=== PATIENT | female | born 1960 | race Caucasian/White ===

== ENCOUNTER 2019-08-01 07:55 | Outpatient (CLI) | payer BC, SELFPAY ==
--- NOTE | ~2019-08-01 | DEXA_ITS ---
Bone Density Report Name: Rosaura Joyce Age: 59 Sex: Female Ethnicity: White Date of : 1960 Indication: postmenopausal; Referring Provider: Taylor, Desiree Study: Bone densitometry was performed. Exam Date: August 01, 2019 Accession number: [id number] Bone Density: Region BMD T-score Z-score Classification AP Spine (L1-L4) 1.334 2.6 3.9 Normal Femoral Neck (Left) 0.844 0.0 1.2 Normal Total Hip (Left) 1.044 0.8 1.7 Normal Total Hip Bilateral Avg 1.117 1.4 2.3 Normal Femoral Neck (Right) 0.989 1.3 2.5 Normal Total Hip (Right) 1.188 2.0 2.9 Normal World Health Organization criteria for BMD impression classify patients as: Normal (T-score at or above -1.0), Osteopenia (T-score between -1.0 and -2.5), or Osteoporosis (T-score at or below -2.5). 10-year Fracture Risk: FRAX not reported because: All T-scores for Spine Total, Hip Total, Femoral Neck at or above -1.0 Clinical Information Provided by Patient: Has used the following medications: Vitamin D Patient maximum height was 70 Menopause Age: 54 Drinks caffeinated beverages Onset of menses at age 16 Number of children 3 Impression: The patient has normal bone mass. Discussion: BONE DENSITY IS ABOVE THE MINIMUM DESIRABLE LEVEL AT ALL SKELETAL SITES TESTED. This patient?s bone mineral density is above the minimum desirable level (T-score -1.0 or better) at all sites measured. The patient should follow a healthful lifestyle (good nutrition with adequate calcium and vitamin D, and appropriate weight-bearing exercise). Follow-Up: Consider repeating this study in 5 years or sooner if there is some new clinical indication. Reported by: HEATHER on 08/01/2019 8:17:00 AM. Reviewed, dictated and finalized at location [facility]
== END 2019-08-01 07:56 | disposition home or self-care (01) ==
PROVIDERS: PCP Internal Medicine; Visit Provider Nurse Practitioner
DX: Z78.0 Asymptomatic menopausal state (principal)
CPT/HCPCS: 77080

== ENCOUNTER 2020-03-11 16:41 | Outpatient (CLI) | payer BC, SELFPAY ==
--- NOTE | ~2020-03-11 | CT_ITS ---
EXAMINATION: CT chest wo con DATE: 03/11/2020 17:05 INDICATION: R91.1 - Solitary pulmonary nodule TECHNIQUE: Computed tomography (CT) of the chest was performed without intravenous contrast. Addition al 3D reconstructions utilizing coronal maximum intensity projection (MIP) were performed. Automated exposure control and iterative reconstruction technique were employed. The dose-length product was 15 9.36 mGy-cm. COMPARISON: Chest CT dated 05/06/[address] dated 09/28/2017 FINDINGS: Likely benign 8 mm right lower lobe nodule which is unchanged since 09/28/2017, most consistent with ol d granulomatous disease. Additional unchanged 2 mm right lower lobe nodule. No new or enlarging pulmo nary nodules. No pneumonia, pulmonary edema, pleural effusion or pneumothorax. Heart size is normal. No pericardial effusion. Thoracic aorta is normal in caliber. No pathologically enlarged thoracic lym phadenopathy. Cholecystectomy clips the gallbladder fossa. Mild to moderate thoracic spondylosis with minimal to mild anterior wedging of multiple mid to lower thoracic vertebral bodies along with multi ple Schmorl's nodes. IMPRESSION: 1. Greater than 2 years of stability of an 8 mm right lower lobe nodule consistent with old granuloma tous disease and requiring no further follow-up. Reviewed, dictated and finalized at location [facility] IMPRESSION: 1. Greater than 2 years of stability of an 8 mm right lower lobe nodule consist ent with old granulomatous disease and requiring no further follow-up.
== END 2020-03-11 16:42 | disposition home or self-care (01) ==
PROVIDERS: PCP Internal Medicine; Visit Provider Clinical Nurse Specialist
DX: R91.1 Solitary pulmonary nodule (principal)
CPT/HCPCS: 71250

== ENCOUNTER → 2020-04-03 01:05 | Outpatient (CLI) | payer BC, SELFPAY ==
[2020-04-03 20:39] LABS: SARS-CoV-2 RNA PCR Negative
== END ==
PROVIDERS: PCP Internal Medicine; Visit Provider Internal Medicine Gastroenterology
DX: Z01.812 Encounter for preprocedural laboratory examination (principal); Z20.822 Contact with and (suspected) exposure to COVID-19
CPT/HCPCS: C9803; U0003; U0005

== ENCOUNTER 2020-04-07 00:35 | Day surgery (SDC) | payer BC, SELFPAY ==
[2020-03-24 13:40] VITALS: BMI 27.1
[2020-04-07 08:02] VITALS: BP 123/78; PULSE 97; RESP 16; TEMP 36.6; O2SAT 97; BMI 27.2
[2020-04-07] MEDS: LACTATED RINGERS 1,000 ML 150 ML IV CONT (08:18)
[2020-04-07 08:23] LABS: Glucose Point of Care 153 (65-105)
--- NOTE | 2020-04-07 09:07 | WPDANESEPPF ---
Anes - Initial Pre Proc Eval Procedure: Operation Date: 04/07/20 09:00 Proposed Procedures p Screening Colonoscopy - Joseph Connolly MD Date/Time: 04/07/20 09:07 Surgeon: Joseph Connolly MD Pre Op Diagnosis: Neoplasm Screening Patient Data Age: 60 Gender: F Height: 5 ft 10 in Weight: 86.2 kg Last Vital Signs Temp 36.6 C 04/07/20 08:02 Pulse 97 04/07/20 08:02 Resp 16 04/07/20 08:02 BP 123/78 04/07/20 08:02 Pulse Ox 97 04/07/20 08:02 Allergies Allergy/AdvReac Type Severity Reaction Status Date / Time No Known Allergies Allergy Verified 04/07/20 08:00 Home Medications Medication Instructions Recorded Confirmed Type aspirin 81 mg tablet,delayed 81 mg PO DAILY 01/17/19 03/24/20 History release blood sugar diagnostic #10 each 01/17/19 03/05/20 History cholecalciferol (vitamin D3) 1,250 50,000 unit PO WEEKLY 01/17/19 03/24/20 History mcg (50,000 unit) capsule escitalopram oxalate 10 mg tablet 10 mg PO DAILY 01/17/19 03/24/20 History mecobalamin (vitamin B12) 1,000 1,000 mcg PO DAILY 08/21/19 03/24/20 History mcg chewable tablet glipizide 10 mg tablet 10 mg PO DAILY #90 tablet 01/15/20 03/24/20 Rx simvastatin 40 mg tablet 40 mg PO DAILY #90 tablet 01/15/20 03/24/20 Rx sitagliptin 100 mg tablet 100 mg PO DAILY #90 tablet 01/15/20 03/24/20 Rx lisinopril 10 1 tablet PO DAILY #90 tablet 03/09/20 03/24/20 Rx mg-hydrochlorothiazide 12.5 mg tablet metformin 1,000 mg tablet 1,000 mg PO BID #180 tablet 03/09/20 03/24/20 Rx pioglitazone 30 mg tablet 30 mg PO DAILY #90 tablet 03/09/20 03/24/20 Rx sodium,potassium,mag sulfates See Rx Instructions .ROUTE 03/16/20 Rx [Suprep Bowel Prep Kit] .COMPLEX #1 ml Laboratory Tests 04/07/20 08:16 POC Capillary Glucose 153 mg/dl H mg/dl (65-105) Patient hx anesthesia problems: none Family hx anesthesia problems: none PMFSH Past Medical History Medical History Cholecystectomy planned 2017 Cholecystitis 09/28/2017 Cholecystostomy drain infection 09/28/2017 Hyperlipidemia Hypertension Lung nodule Lung nodule < 6cm on CT Type 2 diabetes mellitus Surgical History Surgical History H/O dilation and curettage H/O tympanostomy [id number] History of ear surgery October 2018 Family History Family History Father Diabetes mellitus Family history of cardiovascular disease Hypertension Mother Diabetes mellitus Hypertension Sibling Colon cancer Other Carcinoma of colon Social History Social History Smoking status: Never smoker Alcohol intake: never Substance use: never Substance use type: does not use Living arrangements: with family Spiritual care concerns: No Anes - Eval Final PreProcedure Day of Procedure 04/07/20 09:07 Patient weight: overweight Heart: regular rate and rhythm Lungs: clear to auscultation Airway: Mallampati scale class II Neurological: alert and oriented Last oral intake: >/= 8 hours ASA classification: III Emergent: no Anesthetic plan: proceed Anesthesia type and monitoring: general GIVS and standard monitoring Informed Consent: The patient's anesthetic plan and its attendant risks and benefits were discussed with the patient/family/POA. Questions were solicited and answers provided to the satisfaction of the patient/family/POA.
--- NOTE | 2020-04-07 09:37 | PM.HPGS ---
History of Present Illness History of Present Illness Consent: Risks, benefits, and alternatives have been discussed and questions answered. Patient agrees to proceed with procedure. Chief complaint: Neoplasm Screening Narrative: Rosaura Joyce is a 60 year old female with polyps 2016, due to have another colonoscopy Review of Systems Constitutional: Constitutional: Denies headache(s) and Denies weakness Eyes: Eyes: Denies blurry vision ENT: Reports Normal hearing present, Denies headache(s) and Denies neck pain Cardiovascular: Cardiovascular: Denies chest pain and Denies dyspnea Respiratory: Respiratory: Denies dyspnea Gastrointestinal: Gastrointestinal: Reports no additional gastrointestinal complaints Genitourinary: Genitourinary: Denies dysuria Musculoskeletal: Musculoskeletal: Denies neck pain Integumentary/Breasts: Skin/Breast: Denies dry skin Neurologic: Reports Normal hearing present, Denies headache(s) and Denies weakness Psychiatric: Psychiatric: Denies anxiety Endocrine: Endocrine: Denies change in body appearance Hematologic/Lymphatic: Hematologic/Lymphatic: Denies easy bleeding Allergic/Immunologic: Allergic/Immunologic: Denies urticaria PMFSH Past Medical History Medical History Cholecystectomy planned 2018 Cholecystitis 09/28/2017 Cholecystostomy drain infection 09/28/2017 Hyperlipidemia Hypertension Lung nodule Lung nodule < 6cm on CT Type 2 diabetes mellitus Surgical History Surgical History H/O dilation and curettage H/O tympanostomy 6644-7977 History of ear surgery October 2018 Family History Family History Father Diabetes mellitus Family history of cardiovascular disease Hypertension Mother Diabetes mellitus Hypertension Sibling Colon cancer Other Carcinoma of colon Social History Social History Smoking status: Never smoker Alcohol intake: never Substance use: never Substance use type: does not use Living arrangements: with family Spiritual care concerns: No Meds Home Medications and Allergies Home Medications Medication Instructions Recorded Confirmed Type aspirin 81 mg tablet,delayed 81 mg PO DAILY 01/17/19 03/24/20 History release blood sugar diagnostic #10 each 01/17/19 03/05/20 History cholecalciferol (vitamin D3) 1,250 50,000 unit PO WEEKLY 01/17/19 03/24/20 History mcg (50,000 unit) capsule escitalopram oxalate 10 mg tablet 10 mg PO DAILY 01/17/19 03/24/20 History mecobalamin (vitamin B12) 1,000 1,000 mcg PO DAILY 08/21/19 03/24/20 History mcg chewable tablet glipizide 10 mg tablet 10 mg PO DAILY #90 tablet 01/15/20 03/24/20 Rx simvastatin 40 mg tablet 40 mg PO DAILY #90 tablet 01/15/20 03/24/20 Rx sitagliptin 100 mg tablet 100 mg PO DAILY #90 tablet 01/15/20 03/24/20 Rx lisinopril 10 1 tablet PO DAILY #90 tablet 03/09/20 03/24/20 Rx mg-hydrochlorothiazide 12.5 mg tablet metformin 1,000 mg tablet 1,000 mg PO BID #180 tablet 03/09/20 03/24/20 Rx pioglitazone 30 mg tablet 30 mg PO DAILY #90 tablet 03/09/20 03/24/20 Rx sodium,potassium,mag sulfates See Rx Instructions .ROUTE 03/16/20 Rx [Suprep Bowel Prep Kit] .COMPLEX #1 ml Allergies Allergy/AdvReac Type Severity Reaction Status Date / Time No Known Allergies Allergy Verified 04/07/20 08:00 Vital Signs Vital Signs - 24 hr 04/07/20 08:02 Temperature 97.9 F Pulse Rate 97 Respiratory Rate 16 Blood Pressure 123/78 Pulse Oximetry 97 Exam Const: General: comfortable and no acute distress HENMT: General nose exam: Normal nares present Eyes: General: appearance normal, both eyes and all related structures Neck: Neck: no JVD Resp: Auscultation: clear to auscultation bilaterally Cardio: Rate: regular rate Rhythm: re
[2020-04-07 10:07] VITALS: BP 95/62; PULSE 77; RESP 14; O2SAT 97
[2020-04-07 10:17] VITALS: BP 96/58; PULSE 78; RESP 17; O2SAT 100
[2020-04-07 10:27] VITALS: BP 110/68; PULSE 77; RESP 19; O2SAT 100
== END 2020-04-07 10:36 | disposition home or self-care (01) ==
PROVIDERS: PCP Internal Medicine; Visit Provider Internal Medicine Gastroenterology
PROC: 0DJD8ZZ Inspection of Lower Intestinal Tract, Via Natural or Artificial Opening Endoscopic (ICD-10-PCS; CPT 45378; principal; 2020-04-07 09:00)
DX: Z12.11 Encounter for screening for malignant neoplasm of colon (principal); K64.8 Other hemorrhoids; Z86.010 Personal history of colon polyps; I10 Essential (primary) hypertension; E78.5 Hyperlipidemia, unspecified; E11.9 Type 2 diabetes mellitus without complications; R91.1 Solitary pulmonary nodule; Z79.82 Long term (current) use of aspirin; Z79.84 Long term (current) use of oral hypoglycemic drugs
CPT/HCPCS: 45378; 82948; J2704; J7120

== ENCOUNTER → 2021-01-04 08:07 | Outpatient (CLI) | payer BC, SELFPAY ==
[2021-01-04 16:54] LABS: SARS-CoV-2 RNA PCR Negative
== END ==
PROVIDERS: PCP Internal Medicine; Visit Provider Clinical Nurse Specialist
DX: R09.81 Nasal congestion (principal); Z20.822 Contact with and (suspected) exposure to COVID-19
CPT/HCPCS: C9803; U0003; U0005

== ENCOUNTER 2021-05-19 00:11 | Day surgery (SDC) | payer BC, SELFPAY ==
[2021-04-26 13:45] VITALS: BMI 26.5
--- NOTE | 2021-05-05 13:59 | PC.NURSE ---
Pt denies changed in medical hx or medications since lat PAT. pt updated new date and time of procedure, denies questions.
--- NOTE | 2021-05-18 13:01 | WPDGICN ---
Assessment and Plan Assessment and plan (1) Dysphagia: Qualifiers: Dysphagia type: unspecified Qualified Code(s): R13.10 - Dysphagia, unspecified Code(s): R13.10 - Dysphagia, unspecified Status: Acute Assessment and Plan: EGD with possible biopsy or dilatation or cautery. GI Consult Note Consult date/time: 05/18/21 13:01 HPI: Rosaura Joyce is a 61 year old female Who had problems with nausea vomiting for almost 24 hours in February. She was eating mashed potatoes that cause pain on going down and then later came back up. She had another episode the next day with toes. This has been going on every now and then for about a year and half. She does not have chronic acid reflux. She denies any episodes which she needs to leave the table because food seems to be stuck. She has lost about 10 lb but intentionally. Review of Systems Review of Systems: All systems reviewed & are unremarkable except as noted in HPI and below PMFSH Past Medical History Medical History Cholecystectomy planned 2017 Cholecystitis 09/28/2017 Cholecystostomy drain infection 09/28/2017 Hyperlipidemia Hypertension Lung nodule Lung nodule < 6cm on CT Type 2 diabetes mellitus Vitamin D deficiency Surgical History Surgical History H/O dilation and curettage H/O tympanostomy 9442-6926 History of ear surgery October 2018 Family History Family History Father Diabetes mellitus Family history of cardiovascular disease Hypertension Mother Diabetes mellitus Hypertension Sibling Colon cancer Other Carcinoma of colon Social History Social History Smoking status: Never smoker Alcohol intake: never Alcohol use details: Pt drinks 1 drink monthly. Substance use: never Substance use type: does not use Living arrangements: with family Spiritual care concerns: No Meds Home Medications and Allergies Home Medications Medication Instructions Recorded Confirmed Type aspirin 81 mg tablet,delayed 81 mg PO DAILY 01/17/19 05/19/21 History release blood sugar diagnostic #10 each 01/17/19 05/19/21 History cholecalciferol (vitamin D3) 1,250 50,000 unit PO WEEKLY 01/17/19 05/19/21 History mcg (50,000 unit) capsule escitalopram oxalate 10 mg tablet 10 mg PO DAILY 01/17/19 05/19/21 History glipizide 10 mg tablet 10 mg PO DAILY #90 tablet 01/14/21 05/19/21 Rx lisinopril 10 1 tablet PO DAILY #90 tablet 01/14/21 05/19/21 Rx mg-hydrochlorothiazide 12.5 mg tablet metformin 1,000 mg tablet 1,000 mg PO BID #180 tablet 01/14/21 05/19/21 Rx pioglitazone 30 mg tablet 30 mg PO DAILY #90 tablet 01/14/21 05/19/21 Rx simvastatin 40 mg tablet 40 mg PO DAILY #90 tablet 01/14/21 05/19/21 Rx sitagliptin 100 mg tablet 100 mg PO DAILY #90 tablet 01/14/21 05/19/21 Rx fluticasone propionate 50 2 spray INTRANASAL BID #16 ml 02/07/21 05/19/21 Rx mcg/actuation nasal spray,suspension Allergies Allergy/AdvReac Type Severity Reaction Status Date / Time No Known Allergies Allergy Verified 05/19/21 06:23 Exam Const: General: alert Orientation/consciousness: patient oriented x3 Resp: Auscultation: clear to auscultation bilaterally Cardio: Rhythm: regular rhythm GI: GI Palp: Yes Soft to palpation and No Tenderness to palpation present (GI) Neuro: General: patient oriented x3
[2021-05-19 06:24] VITALS: BP 123/74; PULSE 91; RESP 16; TEMP 36.1; O2SAT 99
--- NOTE | 2021-05-19 06:26 | WPDANESEPPF ---
Anes - Initial Pre Proc Eval Procedure: Operation Date: 05/19/21 07:30 Proposed Procedures p Esophagogastroduodenoscopy - Parviz Elise MD Date/Time: 05/19/21 06:26 Surgeon: Parviz Elise MD Pre Op Diagnosis: dysphagia Patient Data Age: 61 Gender: F Height: 1.78 m Weight: 87.2 kg Last Vital Signs Temp 36.1 C L 05/19/21 06:24 Pulse 91 05/19/21 06:24 Resp 16 05/19/21 06:24 BP 123/74 05/19/21 06:24 Pulse Ox 99 05/19/21 06:24 Allergies Allergy/AdvReac Type Severity Reaction Status Date / Time No Known Allergies Allergy Verified 05/19/21 06:23 Home Medications Medication Instructions Recorded Confirmed Type aspirin 81 mg tablet,delayed 81 mg PO DAILY 01/17/19 05/19/21 History release blood sugar diagnostic #10 each 01/17/19 05/19/21 History cholecalciferol (vitamin D3) 1,250 50,000 unit PO WEEKLY 01/17/19 05/19/21 History mcg (50,000 unit) capsule escitalopram oxalate 10 mg tablet 10 mg PO DAILY 01/17/19 05/19/21 History glipizide 10 mg tablet 10 mg PO DAILY #90 tablet 01/14/21 05/19/21 Rx lisinopril 10 1 tablet PO DAILY #90 tablet 01/14/21 05/19/21 Rx mg-hydrochlorothiazide 12.5 mg tablet metformin 1,000 mg tablet 1,000 mg PO BID #180 tablet 01/14/21 05/19/21 Rx pioglitazone 30 mg tablet 30 mg PO DAILY #90 tablet 01/14/21 05/19/21 Rx simvastatin 40 mg tablet 40 mg PO DAILY #90 tablet 01/14/21 05/19/21 Rx sitagliptin 100 mg tablet 100 mg PO DAILY #90 tablet 01/14/21 05/19/21 Rx fluticasone propionate 50 2 spray INTRANASAL BID #16 ml 02/07/21 05/19/21 Rx mcg/actuation nasal spray,suspension Patient hx anesthesia problems: none Family hx anesthesia problems: none Results Review: All pre-operative results and documents have been reviewed as part of the pre-operative evaluation. [facility] Past Medical History Medical History Cholecystectomy planned 2018 Cholecystitis 09/28/2017 Cholecystostomy drain infection 09/28/2017 Hyperlipidemia Hypertension Lung nodule Lung nodule < 6cm on CT Type 2 diabetes mellitus Vitamin D deficiency Surgical History Surgical History H/O dilation and curettage H/O tympanostomy [id number] History of ear surgery October 2018 Family History Family History Father Diabetes mellitus Family history of cardiovascular disease Hypertension Mother Diabetes mellitus Hypertension Sibling Colon cancer Other Carcinoma of colon Social History Social History Smoking status: Never smoker Alcohol intake: never Alcohol use details: Pt drinks 1 drink monthly. Substance use: never Substance use type: does not use Living arrangements: with family Spiritual care concerns: No Anes - Eval Final PreProcedure Day of Procedure 05/19/21 06:26 Patient weight: overweight Heart: regular rate and rhythm Lungs: clear to auscultation and normal air movement Airway: Mallampati scale class II Neurological: alert and oriented Last oral intake: >/= 8 hours ASA classification: III Emergent: no Anesthetic plan: proceed Anesthesia type and monitoring: general GIVS and standard monitoring Results Review: All pre-operative results and documents have been reviewed as part of the pre-operative evaluation. Informed Consent: The patient's anesthetic plan and its attendant risks and benefits were discussed with the patient/family/POA. Questions were solicited and answers provided to the satisfaction of the patient/family/POA.
[2021-05-19] MEDS: LACTATED RINGERS 1,000 ML 150 ML IV CONT (06:28)
[2021-05-19 06:32] LABS: Glucose Point of Care 171 mg/dl (65-105)
[2021-05-19] MEDS: BENZOCAINE (*SP) 60 ML SPRAY CAN (HURRICAINE) 1 SPRAY MUCOUS MEM (07:27)
[2021-05-19 07:42] VITALS: BP 94/61; PULSE 72; RESP 15
[2021-05-19 07:52] VITALS: BP 92/57; PULSE 74; RESP 18
[2021-05-19 08:02] VITALS: BP 102/58; PULSE 73; RESP 23
== END 2021-05-19 08:14 | disposition home or self-care (01) ==
PROVIDERS: PCP Internal Medicine; Visit Provider Internal Medicine Gastroenterology
PROC: 0DJ08ZZ Inspection of Upper Intestinal Tract, Via Natural or Artificial Opening Endoscopic (ICD-10-PCS; CPT 43235; principal; 2021-05-19 07:30)
DX: K22.2 Esophageal obstruction (principal); K21.00 Gastro-esophageal reflux disease with esophagitis, without bleeding; K22.70 Barrett's esophagus without dysplasia; K44.9 Diaphragmatic hernia without obstruction or gangrene; I10 Essential (primary) hypertension; E78.5 Hyperlipidemia, unspecified; E11.9 Type 2 diabetes mellitus without complications; R91.1 Solitary pulmonary nodule; Z79.84 Long term (current) use of oral hypoglycemic drugs
CPT/HCPCS: 43239; 43249; 82948; 88305; C1726; J2704; J7120

== ENCOUNTER 2022-04-18 12:31 | Outpatient (CLI) | payer BC, SELFPAY ==
[2022-04-18 14:08] LABS: Kit Draw Collected
== END 2022-04-18 12:32 | disposition home or self-care (01) ==
LOC: ANHGOSHLAB 12:33
PROVIDERS: PCP Internal Medicine; Visit Provider Clinical Nurse Specialist
DX: E11.9 Type 2 diabetes mellitus without complications (principal); I10 Essential (primary) hypertension
CPT/HCPCS: 36415

== ENCOUNTER 2022-06-26 07:56 | Outpatient (CLI) | payer BC, SELFPAY | END 2022-06-26 07:57 | disposition home or self-care (01) | LOC: ANHAUDASC 07:57 | PROVIDERS: PCP Internal Medicine; Visit Provider Clinical Nurse Specialist | DX: H90.71 Mixed conductive and sensorineural hearing loss, unilateral, right ear, with unrestricted hearing on the contralateral side (principal); H90.42 Sensorineural hearing loss, unilateral, left ear, with unrestricted hearing on the contralateral side | CPT/HCPCS: 92557; 92567 ==

== ENCOUNTER 2022-07-19 09:54 | Outpatient (CLI) | payer BC, SELFPAY ==
[2022-07-19 10:44] LABS: Anion Gap 9 mmol/L (8-16); Blood Urea Nitrogen 12 mg/dL (7-17); Calcium 9.1 mg/dL (8.4-10.2); Carbon Dioxide 29 mmol/L (22-30); Chloride 100 mmol/L (98-107); Estimated Glomerular Filt Rate > 60; Glucose 141 mg/dL (65-110); Potassium 3.6 mmol/L (3.4-5.0); Sodium 138 mmol/L (137-145)
== END 2022-07-19 09:55 | disposition home or self-care (01) ==
LOC: ANHSURGERY 09:59
PROVIDERS: Anesthesiology; PCP Internal Medicine; Visit Provider Otolaryngology
DX: E11.9 Type 2 diabetes mellitus without complications (principal)
CPT/HCPCS: 36415; 80048

== ENCOUNTER 2022-07-21 00:09 | Day surgery (SDC) | payer BC, SELFPAY ==
--- NOTE | 2022-07-17 09:02 | PC.NURSE ---
Addendum entered by Yamilex Hermosillo RN 07/17/22 09:16: PT STATES SHE DID NOT RECEIVED INSTRUCTIONS ABOUT ASPIRIN, PLANS TO STOP TAKING IT PRIOR TO SURGERY Original Note: Report to the Outpatient Waiting Room, entrance under the [facility] located off [facility], at time _1100 on date _07/21/22_. Planned Procedure Time: __1300_. Time changes happen often and if your time is changed the preop area will call you the afternoon before. - You and your visitor will be asked to self-screen and do not enter if you have any COVID symptoms. - A mask is optional within the hospital at this time. Patients may have clear liquids (water, carbonated beverages, clear teas, apple juice) until 3 hours prior to surgery with a maximum of 20 ounces. - No food from midnight until time of surgery - Infants may have breast milk until 4 hours before surgery, infant formula 6 hours prior to surgery. - Children will be allowed to drink immediately following surgery. If applicable, please bring a bottle or sippy cup to assist with drinking. Juice, water, soda, and popsicles are readily available. For infants on formula, please bring formula the day of surgery. Pacifiers are allowed. Take the following medications with a SIP of water the morning of surgery: NONE DO NOT STOP ANY OF YOUR OTHER PRESCRIPTION MEDICATIONS PRIOR TO SURGERY ?EXCEPT THE FOLLOWING Medications to discontinue per physician VITAMIN Date to take last dose 07/18/22___ Please no make-up, nail portuguese, hairspray, perfume, deodorant, or body powder the day of surgery. No jewelry (including any body piercings) or valuables the day of surgery, leave them at home. Please take a shower or bath the night before, or the morning of, surgery with an antibacterial soap. Wear comfortable, loose fitting clothing. Children are encouraged to wear pajamas. - Jewelry must be removed prior to entering the operating room. Rings and piercings that are not removed may be cut off. - The hospital will not accept responsibility for valuables. - Please leave all valuables, including medications, at home the day of surgery. If you are going home after surgery, a licensed mobile lounge driver must drive you home. - NO public transportation without another adult if you receive anesthesia. - We recommend that an adult stay with you for 24 hours following discharge. - We also recommend that you do not drive, make important decision, drink alcoholic beverages, or take any drugs that were not prescribed by your health care provider for at least 24 hours after your discharge time. For Pediatric surgeries, we recommend two adults accompany the child home. Follow any additional instructions given to you from your surgeon. If you or anyone in your household have experienced Covid symptoms in the past week, please notify your surgeon or the nurse liaison at the phone number below for possible testing. Telephone instructions given to _MAYKEL__and asked if any additional questions and then verbalized understanding. Patient advised to call surgeon office or pre surgery nurse liaison [phone] if any additional questions.
[2022-07-17 09:21] VITALS: BMI 24.3
--- NOTE | 2022-07-20 17:53 | PM.IMHP ---
H&P: HPI History of Present Illness Date/Time: 07/20/22 17:53 Chief Complaint: right-sided otitis media right-sided eustachian tube dysfunction Narrative: planned procedure Review of Systems Review of Systems: All systems reviewed & are unremarkable except as noted in HPI and below PMFSH Past Medical History Medical History Acute and chronic cholecystitis Body mass index (BMI) 23 or greater (10/15/17) Cholecystectomy planned 2017 Cholecystitis 09/28/2017 Cholecystostomy drain infection 09/28/2017 Chronic cholecystitis with calculus Dietary counseling and surveillance Dysfunction of right eustachian tube Dysphagia Essential hypertension Hearing loss in right ear Hyperlipidemia Hypertension Hypertrophy of both inferior nasal turbinates Lung nodule Lung nodule < 6cm on CT Nasal septal deviation Perforation of right tympanic membrane Retained myringotomy tube in right ear Sebaceous hyperplasia of face SK (seborrheic keratosis) Skin tag Skin tag of anus Type 2 diabetes mellitus Vitamin D deficiency Surgical History Surgical History H/O dilation and curettage H/O tympanostomy 6333-5216 History of ear surgery October 2018 Family History Family History Father Diabetes mellitus Family history of cardiovascular disease Hypertension Mother Diabetes mellitus Hypertension Sibling Colon cancer Other Carcinoma of colon Social History Social History Smoking status: Never smoker Alcohol intake: current Alcohol use details: RARE 1 PER MONTH Substance use: never Substance use type: does not use Lack of Transportation: No Lack of Food: Never True Current Housing: I Have Housing Concerned About Future Housing: No Difficulty Paying Gas/Electric Bills: No Difficulty Paying for Meds: No Currently Unemployed: No Education: Master's Degree or Higher Difficulty w/ Childcare or Family Care: No Living arrangements: with family Spiritual care concerns: No Meds Home Medications and Allergies Home Medications Medication Instructions Recorded Confirmed Type aspirin 81 mg tablet,delayed 81 mg PO DAILY 01/17/19 07/17/22 History release (Adult Low Dose Aspirin) blood sugar diagnostic (OneTouch #10 ea 01/17/19 07/17/22 History Verio test strips) cholecalciferol (vitamin D3) 1,250 50,000 unit PO [id number] 01/17/19 07/17/22 History mcg (50,000 unit) capsule escitalopram oxalate 10 mg tablet 10 mg PO DAILY 01/17/19 07/17/22 History (Lexapro) dapagliflozin 10 mg tablet 10 mg PO DAILY 90 days #90 tabs 10/27/21 07/17/22 Rx (Farxiga) semaglutide 1 mg/dose (4 mg/3 mL) 1 mg (0.75 mL) subcut WEEKLY 90 02/02/22 07/17/22 Rx subcutaneous pen injector (Ozempic) days #9 mL simvastatin 40 mg tablet See Rx Instructions .Route 03/02/22 07/17/22 Rx .COMPLEX #90 tabs blood-glucose sensor (FreeStyle #6 ea 03/13/22 07/17/22 Rx Charles 3 Sensor device) metformin 1,000 mg tablet 1,000 mg PO BID #180 tabs 05/04/22 07/17/22 Rx lisinopril 5 mg tablet 5 mg PO DAILY #90 tabs 07/03/22 07/17/22 Rx loratadine 10 mg tablet (Claritin) 10 mg PO DAILY 07/17/22 07/17/22 History Allergies Allergy/AdvReac Type Severity Reaction Status Date / Time No Known Allergies Allergy Verified 07/10/22 14:14 Exam Narrative: right-sided fluid in the ear Assessment and Plan Assessment and plan (1) Dysfunction of right eustachian tube: Code(s): H69.81 - Other specified disorders of Eustachian tube, right ear Status: Acute Assessment and Plan: patient has tried sprays popping the ears nothing works plan or nasal endoscopy right-sided eustachian tube balloon dilation right-sided T-tube insertion.? Risks were discussed including failure to
[2022-07-21] VITALS (9 sets, daily range): BP systolic 97–140; BP diastolic 73–82; PULSE 66–76; RESP 12–20; TEMP 36.2–36.4; O2SAT 99–100
--- NOTE | 2022-07-21 07:21 | WPDHPUPDATE1 ---
History and Physical Update Update Date/Time: 07/21/22 07:21 History and Physical has been reviewed, including an updated exam of the patient. There are NO changes in the patient's condition. Risks, benefits, and alternatives have been discussed and questions answered. Patient agrees to proceed with procedure.
[2022-07-21] MEDS: ACETAMINOPHEN 500 MG TABLET 1000 MG PO (11:27)
[2022-07-21] MEDS: LACTATED RINGERS 1,000 ML 30 ML IV CONT (11:50)
[2022-07-21 12:03] LABS: Glucose Point of Care 108 mg/dl (65-105)
--- NOTE | 2022-07-21 12:56 | SUR.PREOP ---
1255-PT AND AWARE SURGEON DELAYS SELF MINIMUM OF 1 HOUR.
--- NOTE | 2022-07-21 13:07 | WPDANESEPPF ---
Anes - Initial Pre Proc Eval Procedure: Operation Date: 07/21/22 13:00 Proposed Procedures p Right Eustachian Tube Balloon Dilation with Nasal Endoscopy, - Gilles Alonzo MD s Right Myringotomy with T-Tube Insertion - Gilles Alonzo MD Date/Time: 07/21/22 13:07 Surgeon: Gilles Alonzo MD Pre Op Diagnosis: r eustachian tube disfunction Patient Data Age: 62 Gender: F Height: 1.78 m Weight: 76.2 kg Last Vital Signs Temp 36.4 C L 07/21/22 11:23 Pulse 72 07/21/22 11:23 Resp 20 07/21/22 11:23 BP 119/81 07/21/22 11:23 Pulse Ox 100 07/21/22 11:23 O2 Del Method Room Air 07/21/22 11:23 Allergies Allergy/AdvReac Type Severity Reaction Status Date / Time No Known Allergies Allergy Verified 07/21/22 11:17 Home Medications Medication Instructions Recorded Confirmed Type aspirin 81 mg tablet,delayed 81 mg PO DAILY 01/17/19 07/21/22 History release (Adult Low Dose Aspirin) blood sugar diagnostic (OneTouch #10 ea 01/17/19 07/17/22 History Verio test strips) cholecalciferol (vitamin D3) 1,250 50,000 unit PO [id number] 01/17/19 07/21/22 History mcg (50,000 unit) capsule escitalopram oxalate 10 mg tablet 10 mg PO DAILY 01/17/19 07/21/22 History (Lexapro) dapagliflozin 10 mg tablet 10 mg PO DAILY 90 days #90 tabs 10/27/21 07/21/22 Rx (Farxiga) semaglutide 1 mg/dose (4 mg/3 mL) 1 mg (0.75 mL) subcut WEEKLY 90 02/02/22 07/21/22 Rx subcutaneous pen injector (Ozempic) days #9 mL simvastatin 40 mg tablet See Rx Instructions .Route 03/02/22 07/21/22 Rx .COMPLEX #90 tabs blood-glucose sensor (FreeStyle #6 ea 03/13/22 07/17/22 Rx Charles 3 Sensor device) metformin 1,000 mg tablet 1,000 mg PO BID #180 tabs 05/04/22 07/21/22 Rx lisinopril 5 mg tablet 5 mg PO DAILY #90 tabs 07/03/22 07/21/22 Rx loratadine 10 mg tablet (Claritin) 10 mg PO DAILY 07/17/22 07/21/22 History Laboratory Tests 07/21/22 11:59 POC Capillary Glucose 108 H mg/dl (65-105) Patient hx anesthesia problems: none Family hx anesthesia problems: none Results Review: All pre-operative results and documents have been reviewed as part of the pre-operative evaluation. [facility] Past Medical History Medical History Acute and chronic cholecystitis Body mass index (BMI) 23 or greater (10/15/17) Cholecystectomy planned 2017 Cholecystitis 09/28/2017 Cholecystostomy drain infection 09/28/2017 Chronic cholecystitis with calculus Dietary counseling and surveillance Dysfunction of right eustachian tube Dysphagia Essential hypertension Hearing loss in right ear Hyperlipidemia Hypertension Hypertrophy of both inferior nasal turbinates Lung nodule Lung nodule < 6cm on CT Nasal septal deviation Perforation of right tympanic membrane Retained myringotomy tube in right ear Sebaceous hyperplasia of face SK (seborrheic keratosis) Skin tag Skin tag of anus Type 2 diabetes mellitus Vitamin D deficiency Surgical History Surgical History H/O dilation and curettage H/O tympanostomy [id number] History of ear surgery October 2018 Family History Family History Father Diabetes mellitus Family history of cardiovascular disease Hypertension Mother Diabetes mellitus Hypertension Sibling Colon cancer Other Carcinoma of colon Social History Social History Smoking status: Never smoker Alcohol intake: current Alcohol use details: RARE 1 PER MONTH Substance use: never Substance use type: does not use Lack of Transportation: No Lack of Food: Never True Current Housing: I Have Housing Concerned About Future Housing: No Difficulty Paying Gas/Electric Bills: No Difficulty Paying for Meds: No Currently Unemployed: No Education: Master's Degree or Higher Difficulty w/ Ch
[2022-07-21] MEDS: CIPROFLOXACIN HCL 0.3% OP SOLN 2.5 ML BTL 4 DROP EACH EAR (14:37)
[2022-07-21] MEDS: OXYMETAZOLINE HCL 0.05% NAS 15 ML BTL (*BKC) 1 SPRAY NASAL (14:39)
--- NOTE | 2022-07-21 15:23 | P.OP_ITS ---
Procedure Note - Detailed Date of Procedure 07/21/22 Pre-op Diagnosis right eustachian tube dysfunction,Right otitis media Post-op Diagnosis Same Procedure Performed right-sided nasal endoscopy right-sided eustachian tube balloon dilation right- sided myringotomy with T-tube insertion Surgeon Gilles Alonzo MD Anesthesia General ( LMA) Indications see above Findings thick mucus the right middle ear had to go round cartilage graft it has been previously placed. Successful dilation of right eustachian tube no bleeding no trauma to any surrounding structures successful placement of T-tube Description of Procedure patient identified consent verified preop. Patient brought operating room. Time-out performed. General anesthesia induced LMA secured. Patient prepped draped position procedure confirm 2nd time-out performed. A microscope brought on the field right-sided you large cartilage graft still retracted mucus behind this small incision made just inferior posterior to the graft mucus suctioned out with 3 and 5 [place] suctions. T-Tube placed was able to get beneath the graft. Drops placed. No bleeding. Afrin-soaked pledgets placed in nasal passages allowed to sit for 5 minutes. Right-sided nasal endoscopy performed able to hit eustachian tube. Balloon device placed used a balloon dilator and balloon placed within the eustachian tube smooth insertion. Balloon dilation for 2 minutes at 12 atmospheres x2. Patient tolerated the procedure very well. No complications. Balloon removed. I performed all dictated portions of procedure. Blood loss 0 cc. Patient taken to PACU no immediate complications. Estimated Blood Loss 0 Drains No Packing No Pathology None sent Complications No immediate complications Condition Stable Disposition PACU [facility] Billing Surgery - Charge Forward: Surgery Billing
[2022-07-21] MEDS: oxyCODONE HCL (*CRX) 5 MG TAB IR PO (16:15)
== END 2022-07-21 16:40 | disposition home or self-care (01) ==
PROVIDERS: PCP Internal Medicine; Visit Provider Otolaryngology
PROC: (CPT 69436; principal; 2022-07-21 13:00)
PROC: (CPT 69436; 2022-07-21 13:00)
DX: H69.81 Other specified disorders of Eustachian tube, right ear (principal); H66.91 Otitis media, unspecified, right ear; I10 Essential (primary) hypertension; E78.5 Hyperlipidemia, unspecified; E11.9 Type 2 diabetes mellitus without complications; E55.9 Vitamin D deficiency, unspecified; H90.11 Conductive hearing loss, unilateral, right ear, with unrestricted hearing on the contralateral side; Z79.82 Long term (current) use of aspirin; Z79.84 Long term (current) use of oral hypoglycemic drugs; Z79.899 Other long term (current) drug therapy
CPT/HCPCS: 69436; 69705; 82948; A9270; C1726; J1100; J2250; J2405; J2704; J3010; J7120